=== PATIENT | female | born 1945 | race Caucasian/White ===

== ENCOUNTER 2020-06-12 12:50 | Emergency (ER) | payer OTHER ==
[~2020-06-12] VITALS: Ht 162.6 cm; Wt 67.0 kg
--- NOTE | 2020-06-12 12:55 | NUR ---
[facility] ARM PAIN AFTER GLF. NO LOC REPORTED.
[2020-06-12] MEDS ORDERED: NAPR220T77 PO (13:02)
--- NOTE | 2020-06-12 13:05 | NUR ---
FARHEEN CASTANEDA AT BEDSIDE
[2020-06-12] MEDS ORDERED: ONDANSETRON 2MG/ML, 2ML IVPush ONE (13:30)
[2020-06-12] MEDS ORDERED: MORPHINE SULFATE 4 MG/ML, 1ML IVPush PRN (13:30)
[2020-06-12] MEDS ORDERED: ONDANSETRON 2MG/ML, 2ML ONE (13:31)
[2020-06-12] MEDS ORDERED: MORPHINE SULFATE 4 MG/ML, 1ML ONE (13:31)
--- NOTE | 2020-06-12 14:30 | NUR ---
ER KIRT AT BEDSIDE TO PLACE SPLINT
[2020-06-12 14:31] VITALS: BP 139/66
--- NOTE | 2020-06-12 14:50 | NUR ---
DISCHARGE INSTRUCTIONS REVIEWED
== END 2020-06-12 15:03 | disposition home or self-care (01) ==
LOC: ED 13:51
DX: S42.401A Unspecified fracture of lower end of right humerus, initial encounter for closed fracture (principal); S80.02XA Contusion of left knee, initial encounter; R94.31 Abnormal electrocardiogram [ECG] [EKG]; W01.0XXA Fall on same level from slipping, tripping and stumbling without subsequent striking against object, initial encounter; Y93.89 Activity, other specified; Y92.009 Unspecified place in unspecified non-institutional (private) residence as the place of occurrence of the external cause; Y99.8 Other external cause status
CPT/HCPCS: 29105; 73030; 73080; 73564; 93005; 96374; 96375; 99283; J2270; J2405; 99285